=== PATIENT | male | born 1985 | race African-American/Black ===

== ENCOUNTER 2017-06-12 06:09 | Emergency (ER) | payer OTHER ==
[~2017-06-12] VITALS: Ht 180.3 cm; Wt 90.7 kg
[2017-06-12 06:42] LABS: ABSOLUTE LYMPHOCYTES 1.2 thou/uL (0.8-5.3); ABSOLUTE MONOCYTES 0.5 thou/uL (0.0-1.2); ABSOLUTE NEUTROPHILS 4.7 thou/uL (1.6-8.1); BASOPHILS 0.5 %; EOSINOPHILS 0.3 %; HEMATOCRIT 46.9 % (42.0-52.0); HEMOGLOBIN 15.6 gm/dL (14.0-18.0); LYMPHOCYTES 18.9 %; MCH 27.6 pg (26.0-34.0); MCHC 33.3 g/dL (28.0-37.0); MCV 82.8 fL (80.0-100.0); MONOCYTES 7.9 %; NUCLEATED RBCS 0 /100WBC; PLATELET COUNT* 229 thou/uL (150-400); POLYS 72.4 %; RBC 5.66 mil/uL (4.50-6.00); RDW-CV 12.7 % (10.5-14.5); WBC 6.5 thou/uL (4.0-11.0)
[2017-06-12 06:50] LABS: ANION GAP 13 mmol/L (7-16); BUN 16 mg/dL (7-18); CALCIUM 9.8 mg/dL (8.5-10.1); CHLORIDE 101 mmol/L (98-107); CO2 24 mmol/L (21-32); CREATININE 1.1 mg/dL (0.6-1.3); GLUCOSE 121 mg/dL (70-99); POTASSIUM 3.7 mmol/L (3.5-5.1); SODIUM 138 mmol/L (136-145)
[2017-06-12 06:57] LABS: ALBUMIN 4.3 g/dL (3.4-5.0); ALKALINE PHOSPHATASE 66 U/L (46-116); SGOT 23 U/L (15-37); SGPT 28 U/L (30-65); TOTAL PROTEIN 8.2 g/dL (6.4-8.2); TROPONIN-I LEVEL <0.06 ng/mL (<0.06)
[2017-06-12 06:58] LABS: INFLUENZA A ANTIGEN None Detected (None Detect); INFLUENZA B ANTIGEN None Detected (None Detect)
[2017-06-12 08:15] VITALS: BP 167/78
--- NOTE | 2017-06-12 11:04 | EKG ---
[place] [address] ELECTROCARDIOGRAM REPORT Name: KAM HURTADON [id number] Admission: 06/12/17 Attend Phys: Discharge: 06/12/17 Date of : 81 Report #: [id number] THIS REPORT FOR: //name// [facility] ED Test Date: 2017-06-12 Test Time: 06:16:57 Pat Name: KAM HURTADO Department: Room: Gender: M Adolescent Medicine Specialist: ESTEVAN : 1985 Requested By: Fred Mcneil Order Number: [id number] MD: Pravin Martinez Measurements Intervals [place] Rate: 104 P: 73 AR: 147 QRS: 82 QRSD: 88 T: -22 QT: 335 QTc: 441 Interpretive Statements Sinus tachycardia Borderline T wave abnormalities ST elev, probable normal early repol pattern No previous ECG available for comparison Electronically Signed On 06-12-2017 11:04:33 [employer] ADMINISTRATOR by Pravin Martinez [email or web address] <ELECTRONICALLY SIGNED> By: Pravin Martinez MD, [facility] 06/12/17 1104 0616 06 Pravin Martinez MD, FACC /EPI
== END 2017-06-12 08:17 | disposition home or self-care (01) ==
LOC: M.ERS 06:09
PROVIDERS: Emergency Medicine Emergency Medical Services
DX: R07.89 Other chest pain (principal); B34.9 Viral infection, unspecified